=== PATIENT | male | born 1965 | race Caucasian/White ===

== ENCOUNTER 2022-06-18 15:31 | Emergency (ER) | payer OTHER ==
[2022-06-18 15:36] VITALS: TEMP 97.5
[2022-06-18] MEDS ORDERED: KETOROLAC 15 MG/ML 1 ML VIAL IM STA (15:54)
--- NOTE | 2022-06-18 16:26 | XR ---
EXAMINATION TYPE: XR knee complete LT DATE OF EXAM: 06/18/2022 4:21 PM INDICATION: Patient age:Male; 57 years old; Reason for study: injury, pain, swelling; PHH. COMPARISON: None. TECHNIQUE: The Left knee(s) was examined in frontal, lateral, and oblique projections. FINDINGS: No acute fracture or dislocation. Mild medial tibiofemoral joint space narrowing. No signif icant spurring. Small suprapatellar joint effusion. Anterior knee soft tissue edema. IMPRESSION: 1. No acute fracture or dislocation. 2. Small suprapatellar joint effusion. 3. Soft tissue edema of the anterior knee.
--- NOTE | 2022-06-18 17:02 | ED ---
Lower Extremity Injury HPI - General Chief Complaint: Extremity Injury, Lower Stated Complaint: [facility]-L knee injury Time Seen by Provider: 06/18/22 15:41 Source: patient Mode of arrival: ambulatory Limitations: no limitations - History of Present Illness Initial Comments: Patient is a 57-year-old male presenting with chief complaint of left knee pain. Patient was at work today when he bumped his knee. Patient states that he felt a pop and is now having pain with standing and ambulation. Patient states when he is resting the pain mostly subsides. He admits to swelling surrounding the knee. He has normal range of motion. Describes the pain as a stiffness. Denies any numbness, tingling, weakness, joint erythema, fever, chills, lower leg swelling. - Related Data Allergies Allergy/AdvReac Type Severity Reaction Status Date / Time No Known Allergies Allergy Verified 06/18/22 15:36 Review of Systems ROS Statement: Those systems with pertinent positive or pertinent negative responses have been documented in the HPI. ROS Other: All systems not noted in ROS Statement are negative. Past Medical History Past Medical History: No Reported History History of Any Multi-Drug Resistant Organisms: None Reported Past Surgical History: No Surgical Hx Reported Past Psychological History: No Psychological Hx Reported Smoking Status: Current every day smoker Past Alcohol Use History: None Reported Past Drug Use History: None Reported General Exam Limitations: no limitations General appearance: alert, in no apparent distress Head exam: Present: atraumatic, normocephalic, normal inspection Eye exam: Present: normal appearance, PERRL, EOMI. Absent: scleral icterus, conjunctival injection, periorbital swelling Neck exam: Present: normal inspection Left Knee exam: Present: full ROM, tenderness, swelling, effusion. Absent: deformity Lower Leg exam: Present: normal inspection Neurological exam: Present: alert, oriented X3, CN II-XII intact Psychiatric exam: Present: normal affect, normal mood Skin exam: Present: warm, dry, intact, normal color. Absent: rash Course Vital Signs 06/18/22 06/18/22 15:33 17:29 Temperature 97.5 F L Pulse Rate 82 78 Respiratory 16 18 Rate Blood Pressure 154/82 132/68 O2 Sat by Pulse 99 99 Oximetry Medical Decision Making - Medical Decision Making Patient is a 57-year-old male presenting with chief complaint of left knee pain. Patient bumped his knee at work today, admits to swelling and pain with weightbearing and ambulation. On examination patient has full range of motion, mild tenderness to palpation. Patient states that when he tries to stand the knee feels very stiff and it's difficult to walk. No numbness or tingling. There appears to be a small effusion. X-ray shows no acute fracture or dislocation, there is a small suprapatellar effusion. Patient is educated on these findings. Patient is provided with knee immobilizer and crutches and encouraged to follow up with orthopedics. Educated on supportive treatment with rest, ice, elevation, and Motrin and Tylenol. Follow-up with PCP. Report back to ER with any new or worsening symptoms. Discussed return parameters and answered all questions. Patient conveyed verbal understanding and agreed to the plan. I discussed this case in detail with my attending Dr. Preston Disposition Clinical Impression: Knee injury, Suprapatellar effusion of knee Disposition: HOME SELF-CARE Condition: Good Instructions (If sedation given, give patient instructions): Knee Sprain (ED), Swollen Knee Joint (ED), Knee Pain (ED) Additional Instructions: Follow-up with PCP and orthopedics. Report back to ER with any new or worsening symptoms. Take Motrin and Tylenol as needed for pain control. 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
[2022-06-18 17:32] VITALS: BP 132/68; PULSE 78; RESP 18
== END 2022-06-18 17:31 | disposition home or self-care (01) ==
LOC: EC 15:31
DX: S89.92XA Unspecified injury of left lower leg, initial encounter (principal); F17.200 Nicotine dependence, unspecified, uncomplicated; W22.8XXA Striking against or struck by other objects, initial encounter; Y99.0 Civilian activity done for income or pay
CPT/HCPCS: 73562; 99283; 96372; L1830; J1885

== ENCOUNTER → 2022-07-02 | Outpatient (CLI) | payer OTHER ==
--- NOTE | 2022-07-03 02:01 | MR ---
EXAMINATION TYPE: MR knee LT wo con DATE OF EXAM: 07/02/2022 COMPARISON: None HISTORY: Left knee pain, S/P injury. Multiplanar multiecho imaging of the left knee performed with no contrast. There is moderate knee joint effusion. The anterior posterior cruciate ligaments are intact. Collater al ligaments are intact. No evidence of a fracture. The medial and lateral menisci show no evidence o f a tear. The patella is intact. There is increased signal in the inferior patella suggestive of a abelardo ne bruise on the proton density images. No patella fracture. IMPRESSION: No evidence of ligament or meniscal tear. There is knee joint effusion suggestive of some nonspecific synovitis. There is mild edema in the inferior patella suggestive of a mild bone bruise.
== END | disposition home or self-care (01) ==
LOC: RADMRIMAIN 18:21
PROVIDERS: ATTEND Emergency Medicine
DX: S80.02XD Contusion of left knee, subsequent encounter (principal)